=== PATIENT | male | born 1970 | race Caucasian/White ===

== ENCOUNTER 2021-09-03 07:24 | Emergency (ER) | payer OTHER ==
[~2021-09-03] VITALS: Ht 177.8 cm; Wt 80.0 kg
[2021-09-03 09:12] LABS: HEMATOCRIT. 42.9 % (42.0-52.0); HEMOGLOBIN. 14.1 g/dL (14.0-18.0); MEAN CORPUSCULAR HEMOGLOBIN 28.9 pg (28.0-32.0); MEAN CORPUSCULAR VOLUME 87.6 fL (80.0-94.0); MEAN PLATELET VOLUME 7.7 fl (7.4-10.4); PLATELET 278 x1000/uL (130-400); RED CELL DISTRIBUTION WIDTH 13.6 % (11.6-14.6)
[2021-09-03 09:19] LABS: CHLORIDE 103 mEq/L (98-107)
[2021-09-03 09:23] LABS: PROTHROMBIN TIME 11.1 sec (9.6-11.0)
[2021-09-03 11:19] LABS: PLATELET ESTIMATE NORMAL
[2021-09-03] MEDS ORDERED: METR375C2 MT (11:19)
[2021-09-03] MEDS ORDERED: METR-167 PO (11:19)
[2021-09-03] MEDS ORDERED: LEVO750T46 PO (11:19)
[2021-09-03 11:36] VITALS: BP 128/84
== END 2021-09-03 11:37 | disposition home or self-care (01) ==
LOC: ER 07:41 → CANRESERV 10:50 → ENRESERV 10:50 → CANBEDREQ 11:29 → ER 11:37
DX: K57.20 Diverticulitis of large intestine with perforation and abscess without bleeding (principal); I31.9 Disease of pericardium, unspecified; Z20.822 Contact with and (suspected) exposure to COVID-19; I10 Essential (primary) hypertension; E11.9 Type 2 diabetes mellitus without complications; Z98.890 Other specified postprocedural states
CPT/HCPCS: 36415; 74176; 80053; 85025; 85610; 87426; 99284; C9803